=== PATIENT | female | born 1990 ===

== ENCOUNTER 2021-04-18 15:46 | Outpatient (CLI) | payer OTHER ==
[~2021-04-18 15:46] MED LIST: AMOX1TAB12 PO; CEFUROXIME250 MG PO; IBUPROFEN800 MG PO; MOTRIN600 MG PO; ORPH100T PO; URETRON D-S TAB1 TAB PO
== END 2021-04-18 16:36 | disposition home or self-care (01) ==
LOC: PRENATAL 15:46
PROVIDERS: ATTEND Obstetrics & Gynecology Maternal & Fetal Medicine
DX: O35.0XX1 Maternal care for (suspected) central nervous system malformation in fetus, fetus 1 (principal); O35.3XX1 Maternal care for (suspected) damage to fetus from viral disease in mother, fetus 1; O98.512 Other viral diseases complicating pregnancy, second trimester; Z36.89 Encounter for other specified antenatal screening; Z3A.24 24 weeks gestation of pregnancy

== ENCOUNTER 2021-07-17 15:51 | Outpatient (CLI) | payer OTHER | END 2021-07-17 16:45 | disposition home or self-care (01) | LOC: PRENATAL 15:51 | PROVIDERS: ATTEND Obstetrics & Gynecology Maternal & Fetal Medicine | DX: O26.849 Uterine size-date discrepancy, unspecified trimester (principal); O36.8199 Decreased fetal movements, unspecified trimester, other fetus ==